=== PATIENT | male | born 1990 | race Caucasian/White ===

== ENCOUNTER 2019-03-11 22:38 | Emergency (ER) | payer MEDICAID ==
[~2019-03-11] VITALS: Ht 172.7 cm; Wt 84.8 kg
[2019-03-11 22:44] VITALS: Ht 172.7 cm; Wt 84.8 kg
[2019-03-11 23:35] VITALS: BP 145/69
== END 2019-03-11 23:35 | disposition home or self-care (01) ==
LOC: ED 22:38
DX: F41.9 Anxiety disorder, unspecified (principal); R07.89 Other chest pain
CPT/HCPCS: J2060

== ENCOUNTER 2019-03-23 23:59 | Emergency (ER) | payer MEDICAID ==
[~2019-03-23] VITALS: Ht 172.7 cm; Wt 86.2 kg
[2019-03-24 00:26] VITALS: Ht 172.7 cm; Wt 86.2 kg
[2019-03-24 03:53] VITALS: BP 117/76
== END 2019-03-24 03:53 | disposition home or self-care (01) ==
LOC: ED 23:59
DX: F41.0 Panic disorder [episodic paroxysmal anxiety] (principal)

== ENCOUNTER 2019-05-06 18:02 | Emergency (ER) | payer MEDICAID ==
[~2019-05-06] VITALS: Ht 172.7 cm; Wt 83.0 kg
[2019-05-06 18:18] VITALS: Ht 172.7 cm; Wt 83.0 kg
[2019-05-06 19:15] VITALS: BP 134/87
== END 2019-05-06 19:15 | disposition home or self-care (01) ==
LOC: ED 18:02
DX: F41.9 Anxiety disorder, unspecified (principal); R10.9 Unspecified abdominal pain; K62.89 Other specified diseases of anus and rectum